=== PATIENT | male | born 1995 | race Caucasian/White ===

== ENCOUNTER 2019-11-11 12:46 | Day surgery (SDC) | payer OTHER, SELFPAY ==
[2019-11-11] VITALS (8 sets, daily range): BP systolic 97–120; BP diastolic 42–63; PULSE 42–57; RESP 14–16; TEMP 36.1–37.2; O2SAT 96–100; BMI 25.5
[2019-11-11] MEDS: Lactated Ringers 1,000 ML 100 ML IV (13:24)
[2019-11-11] MEDS: Cefazolin 2 GM in 0.9% Normal Saline 100 ML IV (14:34)
[2019-11-11] MEDS: Bupivacaine Mpf 0.5% 30 ML VIAL (14:35)
--- NOTE | 2019-11-11 15:07 | OP.PCM_ITS ---
Report of Operation Date of Procedure: 11/11/19 Pre-Operative Diagnosis: Puncture wound LIF Post-Operative Diagnosis: same Surgery/Procedure Performed:: I & D LIF police radio dispatcher: René Stovall Type of Anesthesia:: Block,Regional Anesthesiologist: Stan Snyder - Admit VTE Documentation VTE Present on Admission: No VTE Mechan Device Prophylaxis: SCD's VTE Pharm Prophylaxis ordered?: No Reason prophylaxis not ordered:: Treatment Not Indicated
== END 2019-11-11 17:25 | disposition home or self-care (01) ==
LOC: SDC 12:49 → AC 12:50
PROVIDERS: Anesthesiology; Referring Provider Orthopaedic Surgery; Visit Provider Orthopaedic Surgery
PROC: (CPT 10120; principal; 2019-11-11 14:15)
DX: S60.451A Superficial foreign body of left index finger, initial encounter (principal); Z11.59 Encounter for screening for other viral diseases; W45.8XXA Other foreign body or object entering through skin, initial encounter; Y93.9 Activity, unspecified; Y92.9 Unspecified place or not applicable
CPT/HCPCS: 10120; 87635; G2023; J7120; J2405; U0003